=== PATIENT | female | born 1955 | race African-American/Black ===

== ENCOUNTER → 2018-06-07 | Outpatient (CLI) | payer OTHER ==
--- NOTE | 2018-06-07 11:54 | Diagnostic Imaging Report ---
EXAM: US SOFT TISSUE NECK/HEAD DATE: 06/07/2018 10:46 AM INDICATION: Osteoarthritis, somatoform disorder COMPARISON: None FINDINGS: Grayscale and color flow Doppler ultrasound of the cervical area was performed. In the right cervical area a discrete lymph node measures 1.2 x 0.5 x 0.8 cm. This appears to have normal lymph node morphology. No discrete abnormal mass or fluid collection is seen in the right cervical area. In the left cervical area no discrete abnormal mass or fluid collection is seen. IMPRESSION: No abnormal mass or fluid collection in the right or left cervical areas. A small nonspecific lymph node is seen on the right. Signed by: Dr. David Lockwood M.D. on 06/07/2018 11:51 AM
--- NOTE | 2018-06-07 12:30 | Diagnostic Imaging Report ---
Exam: Bilateral knees, 3 views History: Osteoarthritis Comparison: None. Findings: Left : No acute, displaced fracture or dislocation. Moderate tricompartmental joint space narrowing with subchondral cystic change, sclerosis, and marginal osteophytosis. No significant joint effusion. Right: No acute, displaced fracture or dislocation. Advanced tricompartmental joint space narrowing, subchondral cystic change, subchondral sclerosis, and marginal osteophytosis. No significant joint effusion. Soft tissues are unremarkable Impression: Moderate left and severe right tricompartmental degenerative joint disease. Signed by: Dr. Prasanna Gallagher M.D. on 06/07/2018 12:27 PM
== END ==
LOC: RAD 10:28
PROVIDERS: ATTEND Family Medicine
DX: M17.0 Bilateral primary osteoarthritis of knee (principal); F45.8 Other somatoform disorders
CPT/HCPCS: 76536